=== PATIENT | female | born 1935 | race Caucasian/White ===

== ENCOUNTER → 2020-01-08 13:43 | Outpatient (REF) | payer MEDICARE, SELFPAY | LOC: ANHLAB 13:43 | PROVIDERS: PCP Physician Assistant Medical; Visit Provider Nurse Practitioner | DX: D49.2 Neoplasm of unspecified behavior of bone, soft tissue, and skin (principal); L72.11 Pilar cyst | CPT/HCPCS: 88304; 88305 ==

== ENCOUNTER → 2020-02-06 11:04 | Outpatient (REF) | payer MEDICARE, SELFPAY | LOC: ANHLAB 11:04 | PROVIDERS: PCP Physician Assistant Medical; Visit Provider Nurse Practitioner | DX: L72.11 Pilar cyst (principal) | CPT/HCPCS: 88305 ==

== ENCOUNTER 2022-10-14 12:30 | Outpatient (RCR) | payer MEDICARE, SELFPAY ==
--- NOTE | 2022-08-20 14:56 | PTOPEVAL1 ---
Assessment and note entered by Liza Camacho, PT Evaluation Information Assessment Status Evaluation Diagnosis Sciatica unspec side Onset 4-6 weeks ago Subjective Information runs down right leg into foot dione at night or with standing long periods Can stand about 10-15 minutes and back will get tight. States cannot walk very far at once otherwise back will get real tight. Reports has arthritis and a back injury. Reports knows she needs to get her core strengthened again. Reports prior level: uses a cane off and on several years depending on her back and if she throws it out . Reported Pain Level Pain Score 0,0: Self Report Assessment PT Clinical Summary Pt presents w/ c/o back pain and pain/tingling into RLE. Reports most pain is at night in bed but also notes cannot stand very long or walk very far without back tightening up and back pain. Pt also reports difficulty with pericare after having a BM. Pt reports she has had sciatica and history of back pain for many years referencing her first experience in 1997. She notes prior to this incidence she had a strong core and was doing well and feels she needs to strengthen her core to improve. Evaluation shows severe lumbar lordosis and increased thoracic kyphosis dione lower thoracic spine. Pt also demo scoliotic curvature that may be related to leg length discrepancy vs pelvic alignment issue. She also demos significant decreased ROM of lumbar spinal in all planes (ext not tested) and decreased core and hip strength effecting lumbopelvic stability. Pt will greatly benefit from physical therapy to address deficits and improve functional independence with mobility, ambulation, ADLs, and to improve pain. Plan of Care Interventions Electrical Stimulation,Gait Training,Hot Pack/Cold Pack,Manual Therapy,Neuro Re-education, Therapeutic Activities,Therapeutic Exercise,Self- Care/Home Management,Ultrasound PT Services Indicated Yes Treatment Frequency and 1-2 x weekly x 8 weeks Duration These treatments will address the objective and functional deficits as defined above. The patient will be advanced safely and appropriately in order for the patient to progress towards his/her prior level of function. Additional exerc
--- NOTE | 2022-09-18 16:40 | PTOPPROGNS ---
Assessment and note entered by Liza Camacho, PT Evaluation Information Assessment Status Progress Diagnosis Sciatica unspec side Subjective Information Pt reports feeling 80% improved overall. Pt states still has difficulty standing and walking doesn't think is much better than previously. Assessment PT Clinical Summary Pt has shown significant improvement since initiation of therapy. She reports feeling 80% improved overall, her highest pain rating for her right leg went from 8/10 down to 3/10, and her worst pain for her back went down to 5/10 as well. She shows significant improvement in her lumbar ROM from 25% to 50% overall with cont deficits in right rotation effecting her the most significantly. Her postures and standing alignment are also improved with pt reporting being very happy with her ability to stand upright now. However pt has yet to plateau in therapy, and would benefit from continuing to improve her ROM and strength further. Thus we will continue plan of care as originally discussed for another 4 weeks. Plan of Care Interventions Electrical Stimulation,Gait Training,Hot Pack/Cold Pack,Manual Therapy,Neuro Re-education, Therapeutic Activities,Therapeutic Exercise, Ultrasound PT Services Indicated Yes Treatment Frequency and 2x weekly x 4 weeks Duration These treatments will address the objective and functional deficits as defined above. The patient will be advanced safely and appropriately in order for the patient to progress towards his/her prior level of function. Additional exercises will be introduced and as well as a comprehensive home exercise program upon discharge, if needed, ?to ensure carryover of functional gains achieved in the clinic. This treatment plan has been reviewed and agreement upon by the patient.
--- NOTE | 2022-10-14 13:30 | BUPTOPDC ---
Assessment and note entered by Liza Camacho, PT Assessment Status Discharge Diagnosis Sciatica unspec side Subjective Information Pt reports feeling 80% improved still After last session had some discomfort in right hip, massaged it and this helped. Pt reports now feels she is walking much better, walks around the house really good . Still tightens up after walking a far distance. Does feel she is able to walk more than she had previously. Pt reports reaching is a lot better Reported Pain Level Pain Score 1,2: Self Report Assessment PT Clinical Summary Pt has attended therapy consistently for lumbar pain and right LE radicular symptoms. Her radicular symptoms have resolved completely (with the exception of muscle soreness at times) with her back pain reducing greatly as well. she reports feeling 80% improved overall, with worst pain rating in back rating at 3/10. She reports she is able to walk longer, stand and walk better, and is more flexible allowing for improved hygiene. She has met all goals with exception of strength, but has her finalized home program to continue independently. Thus pt is being discharged from therapy services for completion of program.
== END 2022-10-14 14:04 | disposition home or self-care (01) ==
LOC: ANHHIPT 12:30
PROVIDERS: PCP Physician Assistant Medical; Visit Provider Physician Assistant Medical
DX: M54.30 Sciatica, unspecified side (principal)
CPT/HCPCS: 97014; 97110; 97112; 97140; 97162; G0283

== ENCOUNTER 2022-10-16 12:01 | Emergency (ER) | payer MEDICARE, SELFPAY ==
[2022-10-16 12:16] VITALS: BP 167/83; PULSE 70; RESP 18; TEMP 36.2; O2SAT 98
--- NOTE | 2022-10-16 12:24 | ED.URI ---
HPI - URI/Sore Throat General Chief Complaint: Upper Respiratory Infection Stated Complaint: headache,congestion,cough Time Seen by Provider: 10/16/22 12:38 Source: patient, RN notes reviewed and old records reviewed Mode of arrival: ambulatory Limitations: no limitations History of Present Illness HPI Narrative: 87-year-old female presents to [facility] complaints of sinus congestion, cough and frontal headache for 2 days. states she had tried taking half a dose of Robitussin which helps a little however it does not react well to her body. patient states she normally has allergy and upper respiratory symptoms, reports taking Coricidin every night. Reports a family member that she spent time with on Wednesday tested positive for COVID this morning patient is a poor historian, states that she can only take Keflex for her sinus issues because all other medications mess with her body. States that she felt feverish last night, did not take her temperature. Onset (ago): day(s) (3) Related Data Allergies Allergy/AdvReac Type Severity Reaction Status Date / Time Sulfa (Sulfonamide AdvReac Unknown Unknown Verified 10/16/22 12:39 Antibiotics) statin intolerance AdvReac Intermediate Cramping Uncoded 10/16/22 12:39 of the Muscles Review of Systems Review of Systems: All systems reviewed & are unremarkable except as noted in HPI and below Constitutional: Constitutional: Reports no additional constitutional complaints Eyes: Eyes: Reports no additional eye complaints ENT: Reports as per HPI, Denies vertigo, Denies dizziness, Denies epistaxis, Reports nasal congestion and Denies sore throat Cardiovascular: Cardiovascular: Reports no additional cardiovascular complaints, Denies chest pain and Denies dyspnea Respiratory: Respiratory: Reports as per HPI, Denies chest congestion, Reports cough, Denies dyspnea and Denies wheezing Gastrointestinal: Gastrointestinal: Reports no additional gastrointestinal complaints, Denies abdominal pain, Denies nausea and Denies vomiting Musculoskeletal: Musculoskeletal: Reports no additional musculoskeletal complaints Integumentary/Breasts: Skin/Breast: Reports system reviewed and no additional complaints, except as docu Neurologic: Reports system reviewed and no additional complaints, except as documented Psychiatric: Psychiatric: Reports no additional psychiatric complaints Allergic/Immunologic: Allergic/Immunologic: Reports no additional allergic/immunologic complaints PMFSH Past Medical History Medical History Diverticulitis GI bleed History of breast cancer HTN (hypertension) TIA (transient ischemic attack) Surgical History Surgical History History of lumpectomy 07/1999 History of mastectomy 04/2016 Social History Social History Smoking status: Never smoker Alcohol intake: never Substance use: never Living arrangements: alone Occupation/Education: retired Gender identity (if verbalized by the patient): Female Comments At the time of my signature, I reviewed and agree with the nursing past medical, surgical, social, and family history. There is no relevant family history pertinent to the patient complaint. Exam Const: General: cooperative, healthy appearing, comfortable, no acute distress, well developed, alert and well nourished Nutritional Appearance: well nourished and obese Orientation/consciousness: patient oriented x3 Limitations: no limitations HENMT: Head: normal to inspection Ears: hearing grossly normal bilaterally and external ears normal Face/Nose/Sinus: Normal external nose present, Normal nares present, Normal nasal mucous membranes and turbinates present and normal facial exam Face and sinus: normal facial exam Mouth: Yes Normal oral and palatal mucosa present,
== END 2022-10-16 13:30 | disposition home or self-care (01) ==
PROVIDERS: Emergency Provider Nurse Practitioner
DX: J06.9 Acute upper respiratory infection, unspecified (principal); I10 Essential (primary) hypertension; Z20.822 Contact with and (suspected) exposure to COVID-19; Z86.73 Personal history of transient ischemic attack (TIA), and cerebral infarction without residual deficits; Z85.3 Personal history of malignant neoplasm of breast
CPT/HCPCS: 87426; 99213; C9803; G0463